=== PATIENT | male | born 1970 | race African-American/Black ===

== ENCOUNTER 2018-01-17 20:33 | Emergency (ER) | payer BC ==
[~2018-01-17] VITALS: Ht 188 cm; Wt 83.8 kg
[~2018-01-17 20:33] MED LIST: MOTRIN800 MG PO; ULTRAM50 MG PO
[2018-01-17] MEDS ORDERED: MOTRIN800 MG PO (23:25)
[2018-01-17] MEDS ORDERED: VALIUM5 MG PO (23:25)
[2018-01-17 23:35] VITALS: BP 116/88
== END 2018-01-17 23:38 | disposition home or self-care (01) ==
LOC: EME 20:33
DX: S16.1XXA Strain of muscle, fascia and tendon at neck level, initial encounter (principal); S39.012A Strain of muscle, fascia and tendon of lower back, initial encounter; V49.40XA Driver injured in collision with unspecified motor vehicles in traffic accident, initial encounter; Y92.410 Unspecified street and highway as the place of occurrence of the external cause; F17.200 Nicotine dependence, unspecified, uncomplicated
CPT/HCPCS: 70490; 72040; 99281; 99284